=== PATIENT | female | born 1985 | race African-American/Black ===

== ENCOUNTER 2018-09-30 14:35 | Inpatient (IN) | payer MEDICARE, MEDICAID ==
[~2018-09-30] VITALS: Ht 170.2 cm; Wt 97.4 kg
[~2018-09-30 14:35] MED LIST: DIVA-78 PO; RISP2 PO
[2018-09-30 18:07] LABS: BASOPHILS % (AUTO) 0.4 % (0.0-2.0); EOSINOPHILS % (AUTO) 2.4 % (1.0-6.0); HEMATOCRIT 30.9 % (36-46); HEMOGLOBIN 10.5 g/dL (12.0-16.0); LYMPHOCYTES # (AUTO) 3.2 K/uL (1.0-4.8); LYMPHOCYTES % (AUTO) 56.6 % (22.0-44.0); MEAN CORPUSCULAR HEMOGLOBIN 28.7 pg (26.0-34.0); MEAN CORPUSCULAR HGB CONC 33.9 G/dL (31.0-37.0); MEAN CORPUSCULAR VOLUME 85 fL (80-100); MONOCYTES # (AUTO) 0.4 K/uL (0.1-1.0); MONOCYTES % (AUTO) 7.7 % (2.0-9.0); NEUTROPHILS # (AUTO) 1.9 K/uL (1.8-7.7); NEUTROPHILS % (AUTO) 32.9 % (40.0-70.0); PLATELET COUNT (AUTO) 316 K/uL (150-450); RED BLOOD CELL COUNT(AUTO) 3.66 MIL/uL (4.00-5.20); RED CELL DISTRIBUTION WIDTH 16.6 % (11.5-14.5)
[2018-09-30 18:23] LABS: ANION GAP 5 mmol/L (8-16); CALCIUM, TOTAL 8.9 mg/dL (8.8-10.5); CARBON DIOXIDE 28 mmol/L (22-29); CHLORIDE 106 mmol/L (98-107); GLOMERULAR FILTR. RATE CALC > 60 mL/min (>60); GLUCOSE,RANDOM 90 mg/dL (70-110); POTASSIUM 3.9 mmol/L (3.5-5.1); SODIUM SERUM 139 mmol/L (136-145); UREA NITROGEN, BLOOD 11 mg/dL (7-18)
[2018-09-30 18:36] LABS: ALANINE AMINOTRANSFERASE 20 U/L (12-78); ALKALINE PHOSPHATASE 54 U/L (46-116); ASPARTATE AMINOTRANSFERASE 12 U/L (15-37); BILIRUBIN,TOTAL 0.3 mg/dL (0.1-1.0); TOTAL PROTEIN, SERUM 6.6 g/dL (6.4-8.2)
[2018-09-30 20:24] LABS: VALPROIC ACID < 3 mcg/mL (50-100)
[2018-09-30] MEDS ORDERED: ZOLPIDEM TARTRATE 10 MG TABLET PO PRN (20:30)
[2018-09-30] MEDS ORDERED: LORazepam 2 MG TABLET PO PRN (20:30)
[2018-09-30] MEDS ORDERED: HALOPERIDOL 5 MG TABLET PO PRN (20:30)
[2018-10-01 00:06] VITALS: BP 120/81
[2018-10-01] MEDS ORDERED: ACETAMINOPHEN 325 MG TABLET PO PRN (07:15)
[2018-10-01] MEDS ORDERED: ALBUTEROL SULFATE HFA 90 MCG/PUFF 8 GM INHALER IH PRN (07:15)
[2018-10-01] MEDS ORDERED: IBUPROFEN 400 MG TABLET PO PRN (07:15)
[2018-10-01] MEDS ORDERED: MAG HYDROX/AL HYDROX/SIMETH ES 30 ML SUSPENSION UDCUP PO PRN (07:15)
[2018-10-01] MEDS ORDERED: CloNIDine HCL 0.1 MG TABLET PO PRN (07:15)
[2018-10-01] MEDS ORDERED: NICOTINE 14 MG/24 HOUR PATCH TD PRN (07:15)
[2018-10-01] MEDS ORDERED: DOCUSATE SODIUM 100 MG CAPSULE PO PRN (07:15)
[2018-10-01] MEDS ORDERED: MAGNESIUM HYDROXIDE SUSPENSION 30 ML UDCUP PO PRN (07:15)
[2018-10-01] MEDS ORDERED: LOPERAMIDE HCL 2 MG CAPSULE PO PRN (07:15)
[2018-10-01] MEDS ORDERED: GuaiFENesin/D-METHORPHAN [SUGAR-FREE] 200-20MG/10 ML SYRUP UDCUP PO PRN (07:15)
[2018-10-01] MEDS ORDERED: ONDANSETRON HCL 4 MG TABLET PO PRN (07:15)
[2018-10-01] MEDS ORDERED: PETROLATUM,WHITE 71 GM JELLY TP PRN (07:15)
[2018-10-01 08:02] VITALS: BP 100/61
[2018-10-01 08:50] LABS: HEMOGLOBIN A1C 4.8 % (4.5-6.2)
[2018-10-01 09:22] LABS: CHOL/HDL RATIO 1.9 (3.9-5.7); FREE T4 (FREE THYROXINE) 0.91 ng/dL (0.76-1.46); THYROID STIMULATING HORMONE 0.63 uIU/mL (0.36-3.74)
[2018-10-01] MEDS: FERROUS SULFATE 325 MG EC TABLET PO SCH ×2 (11:45→16:54)
[2018-10-01 19:07] VITALS: BP 110/80
[2018-10-01] MEDS: DIVALPROEX SODIUM 500 MG DR TABLET PO SCH (20:04)
[2018-10-01] MEDS: RisperiDONE 2 MG TABLET PO SCH (20:04)
[2018-10-02 04:28] VITALS: BP 108/65
[2018-10-02] MEDS: FERROUS SULFATE 325 MG EC TABLET PO SCH ×3 (07:12→16:30)
[2018-10-02 08:30] VITALS: BP 122/73
[2018-10-02] MEDS: DIVALPROEX SODIUM 500 MG DR TABLET PO SCH ×2 (08:30→20:35)
[2018-10-02 16:04] VITALS: BP 116/77
[2018-10-02] MEDS: RisperiDONE 2 MG TABLET PO SCH (20:35)
[2018-10-03 00:32] VITALS: BP 120/86
[2018-10-03] MEDS: FERROUS SULFATE 325 MG EC TABLET PO SCH ×2 (06:39→12:18)
[2018-10-03] MEDS: DIVALPROEX SODIUM 500 MG DR TABLET PO SCH (08:23)
[2018-10-03 09:03] LABS: % IRON SATURATION 8.2 % (22-44)
[2018-10-03] MEDS ORDERED: FERR325T22 PO (13:12)
== END 2018-10-03 14:10 | disposition home or self-care (01) | DRG 885 ==
LOC: EMS 14:35 → B2X 21:00
PROVIDERS: ADMIT Psychiatry & Neurology Child & Adolescent Psychiatry; ATTEND Psychiatry & Neurology Child & Adolescent Psychiatry
DX: F25.1 Schizoaffective disorder, depressive type (principal); R45.851 Suicidal ideations; D64.9 Anemia, unspecified; F17.200 Nicotine dependence, unspecified, uncomplicated; F41.9 Anxiety disorder, unspecified; G40.909 Epilepsy, unspecified, not intractable, without status epilepticus; Z59.0 Homelessness; Z81.8 Family history of other mental and behavioral disorders; Z87.440 Personal history of urinary (tract) infections; Z91.5 Personal history of self-harm; Z88.8 Allergy status to other drugs, medicaments and biological substances; Z28.21 Immunization not carried out because of patient refusal
CPT/HCPCS: 82728; 83036; 83540; 83550; 84439; 84443; G0480

== ENCOUNTER 2020-12-29 04:41 | Inpatient (IN) | payer MEDICARE, MEDICAID ==
[~2020-12-29] VITALS: Ht 170.2 cm; Wt 124.8 kg
[~2020-12-29 04:41] MED LIST changes: +DIVA-112 PO; -DIVA-78 PO; +FERR325T22 PO; -RISP2 PO; +RISP2TAB45 PO
[2020-12-29] MEDS ORDERED: HALOPERIDOL 5 MG TABLET PO PRN (08:45)
[2020-12-29 09:30] VITALS: BP 123/64
[2020-12-29] MEDS: RisperiDONE 2 MG TABLET PO SCH ×2 (11:55→16:24)
[2020-12-29] MEDS: DIVALPROEX SODIUM 500 MG DR TABLET PO SCH ×2 (11:56→20:42)
[2020-12-29 12:14] LABS: GLUCOMETER DEV NAME(LOC) BV3S.; GLUCOSE,POINT OF CARE 127 MG/DL (70-110)
[2020-12-29] MEDS ORDERED: INFLUENZA VIRUS VACCINE QVS 2020-21 (6MO+)/PF 60 MCG/0.5 ML SYRINGE IM ONE (14:00)
[2020-12-29 16:06] VITALS: BP 146/86
[2020-12-30 00:37] VITALS: BP 132/84
[2020-12-30 08:16] VITALS: BP 125/60
[2020-12-30] MEDS: DIVALPROEX SODIUM 500 MG DR TABLET PO SCH ×2 (08:48→20:13)
[2020-12-30] MEDS: RisperiDONE 2 MG TABLET PO SCH ×2 (08:48→15:37)
[2020-12-30] MEDS: LORazepam 2 MG TABLET PO PRN (08:53)
[2020-12-30] MEDS ORDERED: CloNIDine HCL 0.1 MG TABLET PO PRN (14:15)
[2020-12-30] MEDS ORDERED: ONDANSETRON HCL 4 MG TABLET PO PRN (14:15)
[2020-12-30] MEDS ORDERED: DOCUSATE SODIUM 100 MG CAPSULE PO PRN (14:15)
[2020-12-30] MEDS ORDERED: BENZOCAINE/MENTHOL LOZENGE PO PRN (14:15)
[2020-12-30] MEDS ORDERED: IBUPROFEN 600 MG TABLET PO PRN (14:15)
[2020-12-30] MEDS ORDERED: MAGNESIUM HYDROXIDE SUSPENSION 30 ML UDCUP PO PRN (14:15)
[2020-12-30] MEDS ORDERED: ACETAMINOPHEN 325 MG TABLET PO PRN (14:15)
[2020-12-30] MEDS ORDERED: OMEPRAZOLE 20 MG CAPSULE PO PRN (14:15)
[2020-12-30] MEDS ORDERED: BACITRACIN 28 GM OINTMENT TP PRN (14:15)
[2020-12-30] MEDS ORDERED: LOPERAMIDE HCL 2 MG CAPSULE PO PRN (14:15)
[2020-12-30] MEDS ORDERED: MAG HYDROX/AL HYDROX/SIMETH ES 30 ML SUSPENSION UDCUP PO PRN (14:15)
[2020-12-30] MEDS ORDERED: ALBUTEROL SULFATE HFA 90 MCG/PUFF 8 GM INHALER IH PRN (14:15)
[2020-12-30] MEDS ORDERED: PETROLATUM,WHITE 28 GM JELLY TP PRN (14:15)
[2020-12-30] MEDS: FERROUS SULFATE 325 MG EC TABLET PO SCH (15:37)
[2020-12-30 16:01] VITALS: BP 147/86
[2020-12-31 00:14] VITALS: BP 128/82
[2020-12-31] MEDS: FERROUS SULFATE 325 MG EC TABLET PO SCH ×3 (06:54→16:13)
[2020-12-31 08:07] VITALS: BP 129/74
[2020-12-31] MEDS: LORazepam 2 MG TABLET PO PRN ×2 (08:10→16:19)
[2020-12-31] MEDS: DIVALPROEX SODIUM 500 MG DR TABLET PO SCH ×2 (08:10→20:29)
[2020-12-31] MEDS: RisperiDONE 2 MG TABLET PO SCH ×2 (08:10→16:13)
[2020-12-31 08:53] LABS: BASOPHILS % (AUTO) 0.3 % (0.0-2.0); EOSINOPHILS % (AUTO) 1.3 % (1.0-6.0); HEMATOCRIT 34.6 % (36-46); HEMOGLOBIN 11.4 g/dL (12.0-16.0); LYMPHOCYTES # (AUTO) 2.1 K/uL (1.0-4.8); LYMPHOCYTES % (AUTO) 30.7 % (22.0-44.0); MEAN CORPUSCULAR HEMOGLOBIN 25.6 pg (26.0-34.0); MEAN CORPUSCULAR HGB CONC 32.8 G/dL (31.0-37.0); MEAN CORPUSCULAR VOLUME 78 fL (80-100); MONOCYTES # (AUTO) 0.4 K/uL (0.1-1.0); NEUTROPHILS # (AUTO) 4.3 K/uL (1.8-7.7); NEUTROPHILS % (AUTO) 61.7 % (40.0-70.0); PLATELET COUNT (AUTO) 360 K/uL (150-450); RED BLOOD CELL COUNT(AUTO) 4.43 MIL/uL (4.00-5.20); RED CELL DISTRIBUTION WIDTH 18.5 % (11.5-14.5)
[2020-12-31 09:15] LABS: HEMOGLOBIN A1C 6.8 % (3.8-5.6)
[2020-12-31 09:30] LABS: ALANINE AMINOTRANSFERASE 16 U/L (12-78); ALBUMIN 3.1 g/dL (3.4-5.0); ALKALINE PHOSPHATASE 56 U/L (46-116); ANION GAP 6 mmol/L (8-16); ASPARTATE AMINOTRANSFERASE 12 U/L (15-37); BILIRUBIN,TOTAL 0.3 mg/dL (0.1-1.0); CALCIUM, TOTAL 9.2 mg/dL (8.8-10.5); CARBON DIOXIDE 28 mmol/L (22-29); CHLORIDE 103 mmol/L (98-107); CHOL/HDL RATIO 2.5 (3.9-5.7); CHOLESTEROL 116 mg/dL (131-200); CREATININE 0.74 mg/dL (0.60-1.30); FREE T4 (FREE THYROXINE) 1.11 ng/dL (0.76-1.46); GLOMERULAR FILTR. RATE CALC > 60 mL/min (>60); GLUCOSE,RANDOM 80 mg/dL (70-110); HCG,QUANTITATIVE < 1 mIU/mL (0-6); HDL CHOLESTEROL 47 mg/dL (40-60); LDL CHOL (CALC.) 60 mg/dL (0-130); SODIUM SERUM 137 mmol/L (136-145); THYROID STIMULATING HORMONE 1.33 uIU/mL (0.36-3.74); TOTAL PROTEIN, SERUM 7.6 g/dL (6.4-8.2); TRIGLYCERIDES 46 mg/dL (15-150); UREA NITROGEN, BLOOD 10 mg/dL (7-18); VALPROIC ACID 62 mcg/mL (50-100)
[2020-12-31 16:26] VITALS: BP 134/88
[2020-12-31] MEDS: ZOLPIDEM TARTRATE 10 MG TABLET PO PRN (20:32)
[2021-01-01 03:37] VITALS: BP 139/87
[2021-01-01] MEDS: FERROUS SULFATE 325 MG EC TABLET PO SCH ×3 (06:31→16:27)
[2021-01-01 08:20] VITALS: BP 130/83
[2021-01-01] MEDS: DIVALPROEX SODIUM 500 MG DR TABLET PO SCH ×2 (08:33→20:16)
[2021-01-01] MEDS: RisperiDONE 2 MG TABLET PO SCH ×2 (08:33→16:27)
[2021-01-01] MEDS: LORazepam 2 MG TABLET PO PRN (08:33)
[2021-01-01 16:01] VITALS: BP 131/78
[2021-01-02 00:31] VITALS: BP 126/72
[2021-01-02] MEDS: FERROUS SULFATE 325 MG EC TABLET PO SCH ×3 (06:36→16:14)
[2021-01-02] MEDS: DIVALPROEX SODIUM 500 MG DR TABLET PO SCH ×2 (09:00→20:25)
[2021-01-02] MEDS ORDERED: INSULIN LISPRO 100 UNITS/ML SQ PRN (09:00)
[2021-01-02] MEDS ORDERED: GLUCAGON,HUMAN RECOMBINANT 1 MG VIAL IM PRN (09:00)
[2021-01-02] MEDS: RisperiDONE 2 MG TABLET PO SCH ×2 (09:00→16:14)
[2021-01-02] MEDS: LORazepam 2 MG TABLET PO PRN ×3 (09:00→22:45)
[2021-01-02 11:13] LABS: GLUCOMETER DEV NAME(LOC) BV3S.; GLUCOSE,POINT OF CARE 119 MG/DL (70-110)
[2021-01-02 16:06] VITALS: BP 124/76
[2021-01-02] MEDS: MetFORMIN HCL 500 MG TABLET PO SCH (16:14)
[2021-01-02] MEDS: ZOLPIDEM TARTRATE 10 MG TABLET PO PRN (20:25)
[2021-01-02 21:09] LABS: GLUCOMETER DEV NAME(LOC) BV3S.; GLUCOSE,POINT OF CARE 122 MG/DL (70-110)
[2021-01-03 01:26] VITALS: BP 122/73
[2021-01-03] MEDS: FERROUS SULFATE 325 MG EC TABLET PO SCH ×2 (06:22→11:33)
[2021-01-03] MEDS: MetFORMIN HCL 500 MG TABLET PO SCH (06:22)
[2021-01-03] MEDS: LORazepam 2 MG TABLET PO PRN (08:02)
[2021-01-03] MEDS: DIVALPROEX SODIUM 500 MG DR TABLET PO SCH (08:02)
[2021-01-03] MEDS: RisperiDONE 2 MG TABLET PO SCH (08:02)
[2021-01-03 10:04] VITALS: BP 110/54
[2021-01-03 11:30] LABS: GLUCOMETER DEV NAME(LOC) BV3S.; GLUCOSE,POINT OF CARE 153 MG/DL (70-110)
[2021-01-03] MEDS ORDERED: METF-960 PO (15:09)
[2021-01-03] MEDS ORDERED: RISP2TAB45 PO (15:09)
== END 2021-01-03 17:00 | disposition home or self-care (01) | DRG 885 ==
LOC: B3A 09:17
PROVIDERS: ADMIT Psychiatry & Neurology Psychiatry; ATTEND Psychiatry & Neurology Psychiatry
DX: F31.2 Bipolar disorder, current episode manic severe with psychotic features (principal); R45.851 Suicidal ideations; F41.9 Anxiety disorder, unspecified; G47.00 Insomnia, unspecified; K59.00 Constipation, unspecified; F19.10 Other psychoactive substance abuse, uncomplicated; M54.5 Low back pain; Z59.0 Homelessness; Z28.21 Immunization not carried out because of patient refusal
CPT/HCPCS: 83036; 84436; 84439; 84443

== ENCOUNTER 2022-01-15 11:27 | Emergency (ER) | payer MEDICARE, MEDICAID ==
[~2022-01-15] VITALS: Ht 170.2 cm; Wt 104.5 kg
[~2022-01-15 11:27] MED LIST changes: -FERR325T22 PO; +METF-1211 PO
[2022-01-15 11:31] VITALS: BP 116/63
[2022-01-15] MEDS ORDERED: BACITRACIN 0.9 GM PACKET OINTMENT TP ONE (12:15)
== END 2022-01-15 12:37 | disposition home or self-care (01) ==
LOC: EMS 11:27
DX: R21 Rash and other nonspecific skin eruption (principal); F31.9 Bipolar disorder, unspecified; F20.9 Schizophrenia, unspecified; F17.210 Nicotine dependence, cigarettes, uncomplicated; Z88.8 Allergy status to other drugs, medicaments and biological substances; Z79.899 Other long term (current) drug therapy; Z79.84 Long term (current) use of oral hypoglycemic drugs
CPT/HCPCS: 82962; 99283